=== PATIENT | male | born 1935 | race Caucasian/White ===

== ENCOUNTER 2018-07-03 20:00 | Inpatient (IN) | payer MEDICARE ==
[~2018-07-03] VITALS: Ht 185.4 cm; Wt 110.8 kg
--- NOTE | 2018-07-03 20:10 | NUR ---
LATE ENTRY: THIS IS AN 82 YO MALE BIB [facility] AIR TO ER AFTER PT WAS BENDING OVER A BOX AND HAD A SYNCOPAL EPISODE. PER PT HE WAS ONLY OUT FOR "LESS THAN A MINUTE". PT IS CURRENTLY AO X 4. PT CURRENTLY DENIES ANY DIZZINES, CP, SOB OR N/V. PT REPORTS "JUST NOT FEELING RIGHT" EARLIER TODAY. PT WAS 3RD DEGREE [facility], [facility] PT THEN SEEMED TO CONVERT TO SECOND DEGREE TYPE II, WHICH PT WAS IN UPON ARRIVAL TO ER. PT IN 30'S ON MAMMOGRAPHER. PT HAS BRUISE ABOVE RIGHT EYE AND SKIN TEAR ON RIGHT FOREARM. PT AO X 4. PT ON CONT BP, CARDIAC AND O2 MONITORS. CALL LIGHT WITHIN REACH. WILL CONT TO MONITOR PT.
[2018-07-03] MEDS ORDERED: SODIUM CHLORIDE FLUSH 10ML SYR IVF ONE (20:30)
[2018-07-03 20:39] LABS: BASOPHILS # (AUTO) 0.04 x10^3/uL (0-0.1); BASOPHILS % (AUTO) 0 % (0-1); EOSINOPHILS % (AUTO) 0 % (1-7); LYMPHOCYTES # (AUTO) 0.69 x10^3/uL (1-3.4); LYMPHOCYTES % (AUTO) 7 % (22-44); MD NO; MEAN CORPUSCULAR HEMOGLOBIN 30.9 pg (27.5-34.5); MEAN CORPUSCULAR HGB CONC 32.8 g/dL (33.2-36.2); MEAN CORPUSCULAR VOLUME 94.3 fL (81-97); MEAN PLATELET VOLUME 8.4 fL (7.4-10.4); MONOCYTES # (AUTO) 0.51 x10^3/uL (0.2-0.8); MONOCYTES % (AUTO) 5 % (2-9); NEUTROPHILS # (AUTO) 8.55 x10^3/uL (1.8-6.8); NEUTROPHILS % (AUTO) 87 % (42-75); PLATELET COUNT 221 x10^3/uL (130-400); RED BLOOD COUNT 3.99 x10^6/uL (4.38-5.82); RED CELL DISTRIBUTION WIDTH 14.8 % (9.4-14.8)
--- NOTE | 2018-07-03 20:47 | NUR ---
PT IS NOT READY FOR CT LOW HEART RATE.
[2018-07-03 20:49] LABS: INTERNATIONAL NORMALIZED RATIO 1.17 (0.93-1.1); PROTHROMBIN TIME 12.3 Seconds (9.6-11.5)
[2018-07-03 20:51] LABS: ALANINE AMINOTRANSFERASE 115 U/L (12-78); ALBUMIN 3.2 g/dL (3.4-5.0); ANION GAP 9 mmol/L (5-15); CALCIUM 8.5 mg/dL (8.5-10.1); CHLORIDE 106 mmol/L (98-107)
[2018-07-03 20:55] LABS: ALKALINE PHOSPHATASE 152 U/L (45-117); BILIRUBIN,TOTAL 0.5 mg/dL (0.2-1.0); TOTAL PROTEIN 6.3 g/dL (6.4-8.2)
[2018-07-03] MEDS ORDERED: GLUC1TAB55 PO (21:09)
[2018-07-03] MEDS ORDERED: METF500T17 PO (21:09)
[2018-07-03] MEDS ORDERED: METO50TA82 PO (21:09)
[2018-07-03] MEDS ORDERED: [UNRECOGNIZED DRUG - OTHER] PO (21:09)
[2018-07-03] MEDS ORDERED: VITA400C43 PO (21:09)
[2018-07-03] MEDS ORDERED: CRAN1CAP8 PO (21:09)
[2018-07-03] MEDS ORDERED: CETI10TA18 PO (21:09)
[2018-07-03] MEDS ORDERED: GLIP10TA13 PO (21:09)
[2018-07-03] MEDS ORDERED: ASPI-430 PO (21:09)
[2018-07-03] MEDS ORDERED: ATOR40TA PO (21:09)
[2018-07-03] MEDS ORDERED: TERA2CAP3 PO (21:09)
[2018-07-03] MEDS ORDERED: POTA20TA89 PO (21:09)
[2018-07-03] MEDS ORDERED: CLOP75TA52 PO (21:09)
[2018-07-03] MEDS ORDERED: FINA5TAB4 PO (21:09)
[2018-07-03] MEDS ORDERED: CHOL5000 PO (21:09)
[2018-07-03] MEDS ORDERED: MULT1TAB90 PO (21:09)
--- NOTE | 2018-07-03 21:44 | NUR ---
PT TO CT SCAN AND BACK. PT AO X 4. PT AWARE THAT WE ARE WAITING FOR ADMISSION AND HE WILL GET A PACEMAKER IN THE MORNING. PT DENIES ANY PAIN AT THIS TIME. SKIN PWD. SKIN TEARS CLEANSED AND DRESSED WITH XEROFORM. PT REPOSITIONED FOR COMFORT. PT CONT TO BE [facility]IRA IN THE 30'S 2ND DEGREE BLOCK TYPE II. PT ON CONT BP, CARDIAC AND O2 MONITORS. ERMD SAHM AWARE OF DIASTOLIC BP IN THE 30'S. NO NEW ORDERS RECEIVED. WILL CONT TO MONIOTR PT.
[2018-07-03] MEDS ORDERED: SODIUM CHLORIDE FLUSH 10ML SYR IVF PRN (22:00)
[2018-07-03] MEDS ORDERED: DEXTROSE 50%, 50ML SYRINGE ONE (22:25)
[2018-07-03] MEDS ORDERED: CALCIUM CHLORIDE 10%, 10ML SYR ONE (22:25)
[2018-07-03] MEDS ORDERED: INSULIN REGULAR 100 UNITS/ML, 3ML VIAL ONE (22:26)
[2018-07-03] MEDS ORDERED: SODIUM BICARB 8.4%, 50ML SYRINGE ONE (22:27)
[2018-07-03] MEDS ORDERED: INSULIN REGULAR 100 UNITS/ML, 3ML VIAL IVPush ONE (22:30)
[2018-07-03] MEDS ORDERED: POLYETHYLENE GLYCOL 17 GM PACKET PO PRN (22:30)
[2018-07-03] MEDS ORDERED: SODIUM CHLORIDE 0.9% 1,000ML IVBOLUS ONE (22:30)
[2018-07-03] MEDS ORDERED: DEXTROSE 50%, 50ML SYRINGE IVPush ONE (22:30)
[2018-07-03] MEDS ORDERED: CALCIUM CHLORIDE 10%, 10ML SYR IVPush ONE (22:30)
[2018-07-03] MEDS ORDERED: ONDANSETRON 2MG/ML, 2ML IVPush PRN (22:30)
[2018-07-03] MEDS ORDERED: SODIUM BICARB 8.4%, 50ML SYRINGE IVPush ONE (22:30)
[2018-07-03] MEDS ORDERED: BISACODYL 10 MG SUPP PR PRN (22:30)
[2018-07-03] MEDS ORDERED: POTASSIUM CHLORIDE 40 MEQ in SODIUM CHLORIDE 0.9% 500 ML IV ONE (22:30)
[2018-07-03] MEDS: SODIUM CHLORIDE 0.9% 1,000 ML IV SCH (22:46)
[2018-07-03 22:59] LABS: FREE T4 (FREE THYROXINE) 0.97 ng/dL (0.76-1.46); THYROID STIMULATING HORMONE 3.76 mIU/L (0.358-3.740)
[2018-07-03 23:01] LABS: TROPONIN I < 0.015 ng/mL (0.000-0.045)
--- NOTE | 2018-07-03 23:23 | NUR ---
PT TO BE NPO AFTER MIDNIGHT. POC DISCUSSED. PT GIVEN CUP OF WATER PER REQUEST. PT DENIES FURTHER NEEDS AT THIS TIME. AWAITING ADMIT BED.
--- NOTE | 2018-07-03 23:56 | NUR ---
PT MOVED TO HOSPITAL BED FOR COMFORT. PT TOLERATED WELL. POC DISCUSSED. PT DENIES FURTHER NEEDS AT THIS TIME.
[2018-07-04 00:32] VITALS: BP 153/53
[2018-07-04 04:27] LABS: CULTURE INDICATED? YES; MICROSCOPIC INDICATED
[2018-07-04 05:15] LABS: BASOPHILS # (AUTO) 0.01 x10^3/uL (0-0.1); BASOPHILS % (AUTO) 0 % (0-1); EOSINOPHILS # (AUTO) 0.01 x10^3/uL (0-0.4); EOSINOPHILS % (AUTO) 0 % (1-7); LYMPHOCYTES % (AUTO) 13 % (22-44); MD NO; MEAN CORPUSCULAR HGB CONC 33.2 g/dL (33.2-36.2); MEAN CORPUSCULAR VOLUME 93.4 fL (81-97); MEAN PLATELET VOLUME 8.8 fL (7.4-10.4); MONOCYTES # (AUTO) 0.52 x10^3/uL (0.2-0.8); MONOCYTES % (AUTO) 6 % (2-9); NEUTROPHILS # (AUTO) 6.93 x10^3/uL (1.8-6.8); NEUTROPHILS % (AUTO) 81 % (42-75); PLATELET COUNT 199 x10^3/uL (130-400); RED BLOOD COUNT 3.79 x10^6/uL (4.38-5.82); RED CELL DISTRIBUTION WIDTH 15.2 % (9.4-14.8)
[2018-07-04 05:27] LABS: CHLORIDE 111 mmol/L (98-107)
[2018-07-04] MEDS ORDERED: LISI-170 PO (05:30)
[2018-07-04 05:37] LABS: ALANINE AMINOTRANSFERASE 108 U/L (12-78); ALKALINE PHOSPHATASE 136 U/L (45-117); ANION GAP 6 mmol/L (5-15); BILIRUBIN,TOTAL 0.7 mg/dL (0.2-1.0); CALCIUM 8.7 mg/dL (8.5-10.1); CREATININE 1.65 mg/dL (0.7-1.3); TOTAL PROTEIN 5.8 g/dL (6.4-8.2); TROPONIN I 0.021 ng/mL (0.000-0.045)
[2018-07-04 06:42] LABS: CHLORIDE,URINE RANDOM 19 mmol/L; POTASSIUM,URINE RANDOM 78 mmol/L
[2018-07-04 06:49] LABS: SODIUM,URINE RANDOM < 5 mmol/L
[2018-07-04 07:20] VITALS: BP 125/58
[2018-07-04] MEDS: SENNA/DOCUSATE TABLET PO SCH (08:14)
[2018-07-04] MEDS ORDERED: SODIUM CHLORIDE 0.9% 1,000 ML IV SCH (08:38)
[2018-07-04] MEDS: CHOLECALCIFEROL 1,000 UNIT TABLET PO SCH (08:50)
[2018-07-04] MEDS: CETIRIZINE 10 MG TABLET PO SCH (08:50)
[2018-07-04] MEDS: FINASTERIDE 5 MG TABLET PO SCH (08:50)
[2018-07-04] MEDS: VITAMIN E 400 UNITS CAPSULE PO SCH (08:50)
[2018-07-04] MEDS ORDERED: CRANBERRY EXTRACT PO SCH (09:00)
[2018-07-04] MEDS ORDERED: MULTIVITAMINS WITH IRON TABLET PO SCH (09:00)
[2018-07-04] MEDS ORDERED: TEMPLATE NON-FORMULARY MED. (Glucosamine/D3/Boswellia Serra** (Osteo Bi-Flex Caplet**) 1 T PO SCH (09:00)
[2018-07-04] MEDS ORDERED: VIT C PO SCH (09:00)
[2018-07-04] MEDS ORDERED: CEFAZOLIN PMX 1GM/50ML 50 ML IVPB ONE (09:30)
[2018-07-04] MEDS ORDERED: ATROPINE SYRINGE 0.1 MG/ML, 10ML ONE ×2 (09:43→12:00)
[2018-07-04] MEDS ORDERED: LIDOCAINE 2%, 20ML ONE (09:50)
[2018-07-04] MEDS ORDERED: CEFAZOLIN 1,000 MG ONE (09:50)
[2018-07-04] MEDS ORDERED: FENTANYL PF 100 MCG/2ML ONE (09:52)
[2018-07-04] MEDS ORDERED: MIDAZOLAM 1 MG/ML, 5ML ONE (09:52)
[2018-07-04] MEDS ORDERED: ATROPINE SYRINGE 0.1 MG/ML, 10ML IVPush ONE ×3 (10:00)
[2018-07-04] MEDS ORDERED: CALCIUM CHLORIDE 13.6 MEQ in SODIUM CHLORIDE 0.9% 100 ML IV ONE (10:00)
[2018-07-04] MEDS ORDERED: HOLD MEDICATION MC PRN (11:00)
[2018-07-04] MEDS ORDERED: CALCIUM CHLORIDE 10%, 10ML SYR ONE (12:00)
[2018-07-04 12:05] LABS: ANION GAP 3 mmol/L (5-15); CALCIUM 9.5 mg/dL (8.5-10.1); CHLORIDE 112 mmol/L (98-107); CREATININE 1.69 mg/dL (0.7-1.3)
[2018-07-04 13:06] VITALS: BP 134/72
[2018-07-04] MEDS ORDERED: DEXTROSE 50%, 50ML SYRINGE IVPush PRN (16:30)
[2018-07-04] MEDS ORDERED: DEXTROSE 4 GM TAB.CHEW PO PRN (16:30)
[2018-07-04] MEDS ORDERED: GLUCAGON 1 MG IM PRN (16:30)
[2018-07-04] MEDS: SODIUM CHLORIDE 0.9% 1,000 ML IV SCH ×2 (16:31→23:30)
[2018-07-04] MEDS ORDERED: SODIUM POLY SULFONATE UDC 15 GM/60 ML PO ONE (18:00)
[2018-07-04] MEDS ORDERED: ALBUTEROL 0.5%, 20ML NPPB ONE (18:00)
[2018-07-04] MEDS ORDERED: CALCIUM CHLORIDE 10%, 10ML SYR IVPush ONE (18:00)
[2018-07-04] MEDS ORDERED: SODIUM BICARB 8.4%, 50ML SYRINGE IVPush ONE (18:00)
[2018-07-04] MEDS ORDERED: CALCIUM CHLORIDE IV ONE (18:00)
[2018-07-04] MEDS ORDERED: INSULIN REGULAR 100 UNITS/ML, 3ML VIAL IVPush ONE (18:00)
[2018-07-04] MEDS ORDERED: DEXTROSE 50%, 50ML SYRINGE IVPush ONE (18:00)
[2018-07-04] MEDS ORDERED: SODIUM CHLORIDE 0.9% IV ONE (18:00)
[2018-07-04] MEDS: INSULIN LISPRO 100 UNITS/ML, PEN SQ-INSULIN SCH ×2 (18:05→21:59)
[2018-07-04] MEDS: CEFAZOLIN PMX 1GM/50ML 50 ML IVPB SCH (18:07)
[2018-07-04] MEDS ORDERED: ALBUTEROL SULFATE 2.5 MG/3 ML ONE (18:15)
[2018-07-04] MEDS ORDERED: REGULAR INSULIN 62.5 UNITS in SODIUM CHLORIDE 0.9% 249.375 ML IV PRN (19:00)
[2018-07-04] MEDS ORDERED: FUROSEMIDE 100 MG/10 ML IV ONE (19:00)
[2018-07-04] MEDS ORDERED: FUROSEMIDE 40 MG/4 ML ONE (19:20)
[2018-07-04 20:33] LABS: ALBUMIN 3.2 g/dL (3.4-5.0); ANION GAP 7 mmol/L (5-15); CALCIUM 9.3 mg/dL (8.5-10.1); CHLORIDE 110 mmol/L (98-107)
[2018-07-04 20:35] LABS: ALANINE AMINOTRANSFERASE 97 U/L (12-78); ALKALINE PHOSPHATASE 144 U/L (45-117); BILIRUBIN,TOTAL 0.9 mg/dL (0.2-1.0); CREATININE 1.82 mg/dL (0.7-1.3)
[2018-07-04] MEDS: DEXTROSE 10% 1,000 ML IV SCH (20:55)
[2018-07-04] MEDS: SODIUM CHLORIDE NASAL SPRAY 45ML BOTTLE NAS SCH (21:56)
[2018-07-04] MEDS: TERAZOSIN 2MG CAPSULE PO SCH (21:57)
[2018-07-04] MEDS: SODIUM CHLORIDE FLUSH 10ML SYR IVF SCH (21:58)
[2018-07-05] MEDS: CEFAZOLIN PMX 1GM/50ML 50 ML IVPB SCH ×2 (02:31→11:41)
[2018-07-05 04:16] LABS: BASOPHILS # (AUTO) 0.02 x10^3/uL (0-0.1); BASOPHILS % (AUTO) 0 % (0-1); EOSINOPHILS # (AUTO) 0.06 x10^3/uL (0-0.4); EOSINOPHILS % (AUTO) 1 % (1-7); LYMPHOCYTES # (AUTO) 1.04 x10^3/uL (1-3.4); LYMPHOCYTES % (AUTO) 14 % (22-44); MD NO; MEAN CORPUSCULAR HGB CONC 32.9 g/dL (33.2-36.2); MEAN CORPUSCULAR VOLUME 94.1 fL (81-97); MEAN PLATELET VOLUME 8.6 fL (7.4-10.4); MONOCYTES # (AUTO) 0.54 x10^3/uL (0.2-0.8); MONOCYTES % (AUTO) 7 % (2-9); NEUTROPHILS % (AUTO) 78 % (42-75); PLATELET COUNT 189 x10^3/uL (130-400); RED BLOOD COUNT 3.61 x10^6/uL (4.38-5.82); RED CELL DISTRIBUTION WIDTH 14.9 % (9.4-14.8)
[2018-07-05 04:28] LABS: ALANINE AMINOTRANSFERASE 79 U/L (12-78); ALBUMIN 2.8 g/dL (3.4-5.0); ANION GAP 6 mmol/L (5-15); CALCIUM 8.8 mg/dL (8.5-10.1); CHLORIDE 107 mmol/L (98-107); CREATININE 1.42 mg/dL (0.7-1.3)
[2018-07-05 04:30] LABS: ALKALINE PHOSPHATASE 128 U/L (45-117); BILIRUBIN,TOTAL 1.1 mg/dL (0.2-1.0); TOTAL PROTEIN 5.4 g/dL (6.4-8.2)
[2018-07-05 05:16] VITALS: BP 137/71
[2018-07-05] MEDS: DEXTROSE 10% 1,000 ML IV SCH (08:20)
[2018-07-05] MEDS: SODIUM CHLORIDE 0.9% 1,000 ML IV SCH (08:30)
[2018-07-05] MEDS: SODIUM CHLORIDE NASAL SPRAY 45ML BOTTLE NAS SCH ×2 (08:46→20:20)
[2018-07-05] MEDS: SENNA/DOCUSATE TABLET PO SCH (08:55)
[2018-07-05] MEDS: CHOLECALCIFEROL 1,000 UNIT TABLET PO SCH (08:55)
[2018-07-05] MEDS: FINASTERIDE 5 MG TABLET PO SCH (08:55)
[2018-07-05] MEDS: CETIRIZINE 10 MG TABLET PO SCH (08:55)
[2018-07-05] MEDS: INSULIN LISPRO 100 UNITS/ML, PEN SQ-INSULIN SCH ×4 (09:07→20:21)
[2018-07-05] MEDS: SODIUM CHLORIDE FLUSH 10ML SYR IVF SCH ×2 (09:08→20:20)
[2018-07-05] MEDS: VITAMIN E 400 UNITS CAPSULE PO SCH (09:08)
[2018-07-05 16:04] VITALS: BP 154/69
[2018-07-05 19:01] VITALS: BP 173/72
[2018-07-05] MEDS: TERAZOSIN 2MG CAPSULE PO SCH (20:20)
[2018-07-06 00:06] VITALS: BP 152/68
[2018-07-06 06:19] LABS: BASOPHILS # (AUTO) 0.02 x10^3/uL (0-0.1); BASOPHILS % (AUTO) 0 % (0-1); EOSINOPHILS # (AUTO) 0.22 x10^3/uL (0-0.4); EOSINOPHILS % (AUTO) 3 % (1-7); LYMPHOCYTES # (AUTO) 0.69 x10^3/uL (1-3.4); LYMPHOCYTES % (AUTO) 10 % (22-44); MD NO; MEAN CORPUSCULAR HEMOGLOBIN 31.2 pg (27.5-34.5); MEAN CORPUSCULAR HGB CONC 33.3 g/dL (33.2-36.2); MEAN CORPUSCULAR VOLUME 93.7 fL (81-97); MEAN PLATELET VOLUME 8.3 fL (7.4-10.4); MONOCYTES # (AUTO) 0.56 x10^3/uL (0.2-0.8); MONOCYTES % (AUTO) 8 % (2-9); NEUTROPHILS # (AUTO) 5.57 x10^3/uL (1.8-6.8); NEUTROPHILS % (AUTO) 79 % (42-75); PLATELET COUNT 175 x10^3/uL (130-400); RED BLOOD COUNT 3.62 x10^6/uL (4.38-5.82); RED CELL DISTRIBUTION WIDTH 15.2 % (9.4-14.8)
[2018-07-06 06:21] LABS: ANION GAP 8 mmol/L (5-15); CALCIUM 8.2 mg/dL (8.5-10.1); CHLORIDE 108 mmol/L (98-107); CREATININE 0.84 mg/dL (0.7-1.3)
[2018-07-06 06:56] VITALS: BP 148/72
[2018-07-06] MEDS: CETIRIZINE 10 MG TABLET PO SCH (08:24)
[2018-07-06] MEDS: VITAMIN E 400 UNITS CAPSULE PO SCH (08:24)
[2018-07-06] MEDS: FINASTERIDE 5 MG TABLET PO SCH (08:24)
[2018-07-06] MEDS: SODIUM CHLORIDE NASAL SPRAY 45ML BOTTLE NAS SCH ×2 (08:24→20:23)
[2018-07-06] MEDS: SENNA/DOCUSATE TABLET PO SCH (08:24)
[2018-07-06] MEDS: CHOLECALCIFEROL 1,000 UNIT TABLET PO SCH (08:24)
[2018-07-06] MEDS: SODIUM CHLORIDE FLUSH 10ML SYR IVF SCH ×2 (08:25→20:24)
[2018-07-06] MEDS: INSULIN LISPRO 100 UNITS/ML, PEN SQ-INSULIN SCH ×4 (08:25→20:23)
[2018-07-06] MEDS ORDERED: MAGNESIUM SULFATE 4 GM in SODIUM CHLORIDE 0.9% 100 ML IV ONE (08:30)
[2018-07-06] MEDS ORDERED: MAGNESIUM SULFATE PMX 4GM/100M 100 ML IV ONE (08:30)
[2018-07-06] MEDS ORDERED: LISINOPRIL 20 MG TABLET PO SCH (12:00)
[2018-07-06 12:55] VITALS: BP 155/76
[2018-07-06 19:03] VITALS: BP 145/81
[2018-07-06] MEDS: METOPROLOL TARTRATE 50 MG TABLET PO SCH (19:13)
[2018-07-06] MEDS: TERAZOSIN 2MG CAPSULE PO SCH (20:23)
[2018-07-07] VITALS (7 sets, daily range): BP systolic 109–171; BP diastolic 62–89
[2018-07-07] MEDS: ACETAMINOPHEN 325 MG TABLET PO PRN ×2 (00:06→21:10)
[2018-07-07] MEDS: METOPROLOL TARTRATE 50 MG TABLET PO SCH ×2 (05:11→17:42)
[2018-07-07 05:12] LABS: ALBUMIN 2.5 g/dL (3.4-5.0); ANION GAP 6 mmol/L (5-15); CALCIUM 8.3 mg/dL (8.5-10.1); CHLORIDE 106 mmol/L (98-107)
[2018-07-07 05:16] LABS: ALANINE AMINOTRANSFERASE 40 U/L (12-78); ALKALINE PHOSPHATASE 107 U/L (45-117); BILIRUBIN,TOTAL 0.9 mg/dL (0.2-1.0); CREATININE 1.03 mg/dL (0.7-1.3); TOTAL PROTEIN 5.4 g/dL (6.4-8.2)
[2018-07-07 05:39] LABS: BASOPHILS # (AUTO) 0.04 x10^3/uL (0-0.1); BASOPHILS % (AUTO) 1 % (0-1); EOSINOPHILS # (AUTO) 0.23 x10^3/uL (0-0.4); EOSINOPHILS % (AUTO) 3 % (1-7); LYMPHOCYTES # (AUTO) 0.95 x10^3/uL (1-3.4); LYMPHOCYTES % (AUTO) 11 % (22-44); MD SCAN; MEAN CORPUSCULAR HEMOGLOBIN 31.1 pg (27.5-34.5); MEAN CORPUSCULAR HGB CONC 33.4 g/dL (33.2-36.2); MEAN CORPUSCULAR VOLUME 93.2 fL (81-97); MEAN PLATELET VOLUME 8.6 fL (7.4-10.4); MONOCYTES # (AUTO) 0.81 x10^3/uL (0.2-0.8); MONOCYTES % (AUTO) 9 % (2-9); NEUTROPHILS # (AUTO) 6.58 x10^3/uL (1.8-6.8); NEUTROPHILS % (AUTO) 77 % (42-75); PLATELET COUNT 174 x10^3/uL (130-400); RED BLOOD COUNT 3.58 x10^6/uL (4.38-5.82); RED CELL DISTRIBUTION WIDTH 14.6 % (9.4-14.8)
[2018-07-07] MEDS: SENNA/DOCUSATE TABLET PO SCH (08:35)
[2018-07-07] MEDS: INSULIN LISPRO 100 UNITS/ML, PEN SQ-INSULIN SCH ×4 (08:40→21:07)
[2018-07-07] MEDS: FINASTERIDE 5 MG TABLET PO SCH (08:40)
[2018-07-07] MEDS: SODIUM CHLORIDE NASAL SPRAY 45ML BOTTLE NAS SCH ×2 (08:40→19:44)
[2018-07-07] MEDS: CHOLECALCIFEROL 1,000 UNIT TABLET PO SCH (08:41)
[2018-07-07] MEDS: CETIRIZINE 10 MG TABLET PO SCH (08:41)
[2018-07-07] MEDS ORDERED: LISINOPRIL 5 MG TABLET PO SCH (09:00)
[2018-07-07] MEDS: SODIUM CHLORIDE FLUSH 10ML SYR IVF SCH ×2 (12:59→19:44)
[2018-07-07] MEDS: VITAMIN E 400 UNITS CAPSULE PO SCH (13:41)
[2018-07-07] MEDS: TERAZOSIN 2MG CAPSULE PO SCH (19:43)
[2018-07-07] MEDS: LOPERAMIDE 2 MG CAPSULE PO PRN (19:43)
[2018-07-08 00:02] VITALS: BP 152/72
[2018-07-08] MEDS: ACETAMINOPHEN 325 MG TABLET PO PRN ×2 (01:42→17:15)
[2018-07-08 05:48] VITALS: BP 169/76
[2018-07-08] MEDS: METOPROLOL TARTRATE 50 MG TABLET PO SCH ×2 (05:49→16:08)
[2018-07-08] MEDS: SENNA/DOCUSATE TABLET PO SCH (08:05)
[2018-07-08] MEDS ORDERED: MAGNESIUM OXIDE 400 MG TABLET ONE (08:11)
[2018-07-08] MEDS: MAGNESIUM OXIDE 400 MG TABLET PO SCH (08:12)
[2018-07-08] MEDS: CHOLECALCIFEROL 1,000 UNIT TABLET PO SCH (08:13)
[2018-07-08] MEDS: VITAMIN E 400 UNITS CAPSULE PO SCH (08:13)
[2018-07-08] MEDS: CETIRIZINE 10 MG TABLET PO SCH (08:13)
[2018-07-08] MEDS: LISINOPRIL 20 MG TABLET PO SCH (08:13)
[2018-07-08] MEDS: FINASTERIDE 5 MG TABLET PO SCH (08:13)
[2018-07-08] MEDS: SODIUM CHLORIDE FLUSH 10ML SYR IVF SCH ×2 (08:14→20:10)
[2018-07-08] MEDS: SODIUM CHLORIDE NASAL SPRAY 45ML BOTTLE NAS SCH ×2 (08:14→20:09)
[2018-07-08] MEDS: INSULIN LISPRO 100 UNITS/ML, PEN SQ-INSULIN SCH ×4 (08:16→20:10)
[2018-07-08 09:45] VITALS: BP 159/88
[2018-07-08] MEDS: LOPERAMIDE 2 MG CAPSULE PO PRN (13:40)
[2018-07-08 14:27] VITALS: BP 193/97
[2018-07-08] MEDS ORDERED: ENALAPRILAT 1.25 MG/ML, 2ML IV PRN (15:00)
[2018-07-08] MEDS ORDERED: LISINOPRIL 20 MG TABLET PO ONE (16:00)
[2018-07-08 18:05] VITALS: BP 178/93
[2018-07-08 19:10] VITALS: BP 165/74
[2018-07-08] MEDS: TERAZOSIN 2MG CAPSULE PO SCH (20:09)
[2018-07-08] MEDS: HYDROcodone/APAP 5/325 TABLET PO PRN (20:19)
[2018-07-09] VITALS (7 sets, daily range): BP systolic 150–178; BP diastolic 68–91
[2018-07-09] MEDS: HYDROcodone/APAP 5/325 TABLET PO PRN ×2 (00:07→16:26)
[2018-07-09 04:54] LABS: BASOPHILS # (AUTO) 0.01 x10^3/uL (0-0.1); BASOPHILS % (AUTO) 0 % (0-1); EOSINOPHILS # (AUTO) 0.07 x10^3/uL (0-0.4); EOSINOPHILS % (AUTO) 1 % (1-7); LYMPHOCYTES # (AUTO) 0.48 x10^3/uL (1-3.4); LYMPHOCYTES % (AUTO) 5 % (22-44); MD NO; MEAN CORPUSCULAR HEMOGLOBIN 30.5 pg (27.5-34.5); MEAN CORPUSCULAR HGB CONC 32.7 g/dL (33.2-36.2); MEAN CORPUSCULAR VOLUME 93.2 fL (81-97); MEAN PLATELET VOLUME 8.1 fL (7.4-10.4); MONOCYTES # (AUTO) 0.57 x10^3/uL (0.2-0.8); MONOCYTES % (AUTO) 6 % (2-9); NEUTROPHILS # (AUTO) 7.84 x10^3/uL (1.8-6.8); NEUTROPHILS % (AUTO) 87 % (42-75); PLATELET COUNT 190 x10^3/uL (130-400); RED BLOOD COUNT 3.88 x10^6/uL (4.38-5.82); RED CELL DISTRIBUTION WIDTH 14.7 % (9.4-14.8)
[2018-07-09 05:07] LABS: CHLORIDE 101 mmol/L (98-107)
[2018-07-09 05:16] LABS: ALANINE AMINOTRANSFERASE 41 U/L (12-78); ALBUMIN 2.8 g/dL (3.4-5.0); ALKALINE PHOSPHATASE 117 U/L (45-117); ANION GAP 7 mmol/L (5-15); CALCIUM 8.9 mg/dL (8.5-10.1); CREATININE 1.33 mg/dL (0.7-1.3); TOTAL PROTEIN 5.8 g/dL (6.4-8.2)
[2018-07-09] MEDS: METOPROLOL TARTRATE 50 MG TABLET PO SCH ×2 (05:37→17:53)
[2018-07-09] MEDS: SENNA/DOCUSATE TABLET PO SCH (08:57)
[2018-07-09] MEDS: VITAMIN E 400 UNITS CAPSULE PO SCH (09:00)
[2018-07-09] MEDS: SODIUM CHLORIDE FLUSH 10ML SYR IVF SCH ×2 (09:00→20:52)
[2018-07-09] MEDS: MAGNESIUM OXIDE 400 MG TABLET PO SCH (09:16)
[2018-07-09] MEDS: CETIRIZINE 10 MG TABLET PO SCH (09:16)
[2018-07-09] MEDS: CHOLECALCIFEROL 1,000 UNIT TABLET PO SCH (09:16)
[2018-07-09] MEDS: LISINOPRIL 20 MG TABLET PO SCH (09:16)
[2018-07-09] MEDS: SODIUM CHLORIDE NASAL SPRAY 45ML BOTTLE NAS SCH ×2 (09:16→20:52)
[2018-07-09] MEDS: FINASTERIDE 5 MG TABLET PO SCH (09:16)
[2018-07-09] MEDS: INSULIN LISPRO 100 UNITS/ML, PEN SQ-INSULIN SCH ×4 (10:06→20:53)
[2018-07-09] MEDS: LOPERAMIDE 2 MG CAPSULE PO PRN (15:06)
[2018-07-09] MEDS: TERAZOSIN 2MG CAPSULE PO SCH (20:52)
[2018-07-09] MEDS ORDERED: INSULIN GLARGINE 100 UNITS/ML, PEN SQ-INSULIN SCH (21:00)
[2018-07-10 01:53] VITALS: BP 117/64
[2018-07-10 04:58] LABS: ANION GAP 4 mmol/L (5-15); CALCIUM 8.3 mg/dL (8.5-10.1); CHLORIDE 105 mmol/L (98-107)
[2018-07-10 05:00] LABS: CREATININE 1.07 mg/dL (0.7-1.3)
[2018-07-10] MEDS: METOPROLOL TARTRATE 50 MG TABLET PO SCH (05:59)
[2018-07-10 07:31] VITALS: BP 132/71
[2018-07-10] MEDS: INSULIN LISPRO 100 UNITS/ML, PEN SQ-INSULIN SCH ×3 (08:09→16:58)
[2018-07-10] MEDS: LISINOPRIL 20 MG TABLET PO SCH (08:10)
[2018-07-10] MEDS: CHOLECALCIFEROL 1,000 UNIT TABLET PO SCH (08:10)
[2018-07-10] MEDS: FINASTERIDE 5 MG TABLET PO SCH (08:11)
[2018-07-10] MEDS: ACETAMINOPHEN 325 MG TABLET PO PRN (08:11)
[2018-07-10] MEDS: MAGNESIUM OXIDE 400 MG TABLET PO SCH (08:11)
[2018-07-10] MEDS: CETIRIZINE 10 MG TABLET PO SCH (08:11)
[2018-07-10] MEDS: SENNA/DOCUSATE TABLET PO SCH (08:11)
[2018-07-10] MEDS: SODIUM CHLORIDE NASAL SPRAY 45ML BOTTLE NAS SCH (08:12)
[2018-07-10] MEDS: SODIUM CHLORIDE FLUSH 10ML SYR IVF SCH (08:12)
[2018-07-10] MEDS: VITAMIN E 400 UNITS CAPSULE PO SCH (08:12)
[2018-07-10] MEDS: HYDROcodone/APAP 5/325 TABLET PO PRN ×2 (12:16→16:58)
[2018-07-10 12:29] VITALS: BP 139/65
[2018-07-10] MEDS ORDERED: INSU100I11 SQ-INSULIN (16:26)
[2018-07-10] MEDS ORDERED: ACET325T14 PO (16:26)
[2018-07-10] MEDS ORDERED: MAGN400T50 PO (16:26)
[2018-07-10] MEDS ORDERED: SODI44SP NAS (16:26)
[2018-07-10] MEDS ORDERED: INSU100I13 SQ-INSULIN (16:26)
[2018-07-10] MEDS ORDERED: SENN1TAB8 PO (16:26)
--- NOTE | 2018-07-10 17:55 | NUR ---
Pureed diet with thin liquids. Diet and swallow precautions/strategies were reviewed with patient and placed on an orange sheet which was placed on his whiteboard. Addendum: 07/10/18 at 1807 by VADIM PERRY Amended: Links added.
== END 2018-07-10 17:36 | DRG 242 ==
LOC: ED 22:00 → 5SO 22:27 → CCU 07-04 19:09 → 5SO 07-05 16:08
PROVIDERS: ADMIT Hospitalist; ATTEND Hospitalist
PROC: 0JH606Z Insertion of Pacemaker, Dual Chamber into Chest Subcutaneous Tissue and Fascia, Open Approach (ICD-10-PCS; principal; 2018-07-04)
PROC: 02HK3JZ Insertion of Pacemaker Lead into Right Ventricle, Percutaneous Approach (ICD-10-PCS; 2018-07-04)
PROC: 02H63JZ Insertion of Pacemaker Lead into Right Atrium, Percutaneous Approach (ICD-10-PCS; 2018-07-04)
DX: I44.2 Atrioventricular block, complete (principal); S06.5X9A Traumatic subdural hemorrhage with loss of consciousness of unspecified duration, initial encounter; I46.9 Cardiac arrest, cause unspecified; E44.1 Mild protein-calorie malnutrition; N17.9 Acute kidney failure, unspecified; G90.8 Other disorders of autonomic nervous system; I25.10 Atherosclerotic heart disease of native coronary artery without angina pectoris; E11.65 Type 2 diabetes mellitus with hyperglycemia; Z88.8 Allergy status to other drugs, medicaments and biological substances; W18.39XA Other fall on same level, initial encounter; Y93.89 Activity, other specified; Y92.89 Other specified places as the place of occurrence of the external cause; Y99.8 Other external cause status; Z68.32 Body mass index [BMI] 32.0-32.9, adult; D64.9 Anemia, unspecified; E78.00 Pure hypercholesterolemia, unspecified; E78.5 Hyperlipidemia, unspecified; E83.42 Hypomagnesemia; E87.5 Hyperkalemia; F03.90 Unspecified dementia, unspecified severity, without behavioral disturbance, psychotic disturbance, mood disturbance, and anxiety; H91.90 Unspecified hearing loss, unspecified ear; I10 Essential (primary) hypertension; N40.1 Benign prostatic hyperplasia with lower urinary tract symptoms; R32 Unspecified urinary incontinence; R33.8 Other retention of urine; Z75.1 Person awaiting admission to adequate facility elsewhere; Z79.4 Long term (current) use of insulin; Z81.8 Family history of other mental and behavioral disorders; Z87.891 Personal history of nicotine dependence; Z95.1 Presence of aortocoronary bypass graft
CPT/HCPCS: 33208; 36415; 70450; 71045; 76770; 80048; 80053; 81001; 82436; 82550; 82570; 82962; 83036; 83735; 83880; 84100; 84132; 84133; 84300; 84439; 84443; 84484; 85025; 85610; 85730; 87081; 87086; 93005; 93306; 96374; 96375; 99156; 99157; 99291; C1779; C1785; C1892; G0378; J0461; J0690; J1815; J1940; J2250; J3010; J3475; J3490; J7030